=== PATIENT | female | born 1975 | race Two or more races ===

== ENCOUNTER 2020-05-27 00:14 | Emergency (ER) | payer OTHER ==
[~2020-05-27] VITALS: Ht 154.9 cm; Wt 55.0 kg
--- NOTE | 2020-05-27 00:21 | NUR ---
EKG IN TRIAGE
--- NOTE | 2020-05-27 01:16 | NUR ---
PT IN BED WITH NO SIGNS OR SYMPTOMS OF ACUTE DISTRESS NOTED RESPIRATIONS EVEN AND UNLABORED PT STATES PALPITATIONS UNCHANGED SINCE ARRIVAL. PT ON OPERATIONS RESEARCH ENGINEER, SATTING WELL ON ROOM AIR, BED RAILS UP BILATERALLY AND CALL LIGHT WITHIN REACH. PT DENIES NEED OR QUESTIONS AT THIS TIME.
[2020-05-27 01:19] LABS: BASOPHILS % (AUTO) 1 % (0-1); EOSINOPHILS % (AUTO) 3 % (1-7); LYMPHOCYTES % (AUTO) 25 % (22-44); MEAN CORPUSCULAR HEMOGLOBIN 31.2 pg (27.0-34.8); MEAN CORPUSCULAR HGB CONC 34.3 g/dL (32.4-35.8); MEAN PLATELET VOLUME 7.9 fL (7.4-10.4); MONOCYTES % (AUTO) 8 % (2-9); NEUTROPHILS % (AUTO) 64 % (42-75); PLATELET COUNT 203 x10^3/uL (130-400); RED BLOOD COUNT 4.01 x10^6/uL (3.82-5.3); RED CELL DISTRIBUTION WIDTH 12.5 % (9.6-15.2)
[2020-05-27 01:26] LABS: MD NO
[2020-05-27 01:28] LABS: ALANINE AMINOTRANSFERASE 25 U/L (12-78); ALBUMIN 3.4 g/dL (3.4-5.0); ANION GAP 3 mmol/L (5-15); CALCIUM 8.3 mg/dL (8.5-10.1); CHLORIDE 111 mmol/L (98-107); CREATININE 0.68 mg/dL (0.55-1.02)
[2020-05-27 01:39] LABS: ALKALINE PHOSPHATASE 62 U/L (45-117); BILIRUBIN,TOTAL 0.2 mg/dL (0.2-1.0); TOTAL PROTEIN 6.8 g/dL (6.4-8.2); TROPONIN I 0.039 ng/mL (0.000-0.045)
[2020-05-27 01:51] LABS: FREE T4 (FREE THYROXINE) 0.91 ng/dL (0.76-1.46)
[2020-05-27 02:00] VITALS: BP 133/93
== END 2020-05-27 02:43 | disposition home or self-care (01) ==
LOC: ED 00:44
DX: R00.2 Palpitations (principal); R07.89 Other chest pain
CPT/HCPCS: 36415; 71045; 80053; 83735; 84439; 84443; 84484; 84703; 85025; 93005; 99285